=== PATIENT | male | born 1995 | race Caucasian/White ===

== ENCOUNTER 2016-06-01 12:33 | Emergency (ER) | payer OTHER ==
[~2016-06-01] VITALS: Wt 80.4 kg
[2016-06-01] MEDS ORDERED: ONDANSETRON 4 MG INJ IV STA (14:13)
[2016-06-01] MEDS ORDERED: morphine 4 MG/ML VIAL IV STA (14:13)
[2016-06-01] MEDS ORDERED: KETOROLAC 30 MG INJ IV STA (14:13)
--- NOTE | 2016-06-01 14:22 | ERD ---
ER Documentation Chief Complaint Date/Time DATE: 06/01/16 TIME: 14:15 Chief Complaint HEADACHE COUGH AND CONGESTION FOR PAST 8 DAYS. SWOLLEN GLANDS. HPI 20-year-old male with history of migraine headaches presents to the emergency department complaining of shortness of breath, congestion, ear pain, headache with photophobia, cough 4 days. Patient states he was just seen at [facility] 2 days ago for chest pain. He states a full workup including chest x- ray was performed and results were negative. Patient states she was seen at [facility] 1 year ago for similar headache symptoms. Patient denies any unilateral weakness, numbness, blurry vision, dizziness, fever, nausea, vomiting , diarrhea. Patient states she is concerned regarding the possibility of a left nasal polyp but denies ever seeing an ENT specialist. Patient has attempted to treat his symptoms with Motrin and cough medicine at home without relief. ROS All systems reviewed and are negative except as per history of present illness. Medications Home Meds Active Scripts Amoxicillin/Potassium Clav (Amox-Clav 875-125 mg Tablet) 875-125 mg Tab, 1 TAB PO BID for 7 Days, #14 TAB Prov:ONEIDA TAVAREZ PA-C 06/01/16 Acetamin/Butalbital/Caffeine* (Fioricet*) [id number] Tab, 1 TAB PO Q6H Y for PAIN, #30 TAB Prov:ONEIDA TAVAREZ PA-C 06/01/16 Guaifenesin/Pseudoephedrne HCl (Mucinex D ER 1,200-120 mg Tab) 1 Each Tab.er.12h , 1 EACH PO QAM for 5 Days, TAB Prov:ONEIDA TAVAREZ PA-C 06/01/16 Oseltamivir Phosphate* (Tamiflu*) 75 Mg Capsule, 75 MG PO BID for 5 Days, CAP Prov:ONEIDA TAVAREZ PA-C 06/01/16 Fluticasone Propionate (Flonase Allergy Relief) 9.9 Ml [place].susp, 1 SPRAY NASAL BID, #1 BOTTLE TO EACH NOSTRIL Prov:ONEIDA TAVAREZ PA-C 06/01/16 Discontinued Scripts Hydrocodone/Acetaminophen ([place] 10-325 Tablet) 1 Each Tablet, 1 TAB PO Q6H Y for PAIN, #7 TAB Prov:ONEIDA TAVAREZ PA-C 06/01/16 Allergies Allergies: Coded Allergies: No Known Allergy (Unverified , 06/01/16) PMhx/Soc History of Surgery: No Anesthesia Reaction: No Hx Neurological Disorder: Yes (ferequent headaches) Hx Respiratory Disorders: No Hx Cardiac Disorders: Yes (hypertension) Hx Psychiatric Problems: No Hx Alcohol Use: No Hx Substance Use: No Hx Tobacco Use: No Smoking Status: Never smoker Physical Exam Vitals Vital Signs Date Time Temp Pulse Resp B/P Pulse Ox O2 Delivery O2 Flow Rate FiO2 06/01/16 16:29 87 19 99 Nasal Cannula 4.0 06/01/16 16:29 4.0 06/01/16 15:34 95 20 97 21 06/01/16 12:40 98.0 98 20 160/90 99 Physical Exam General: Well developed, well nourished, nontoxic-appearing, mild distress Head: Normocephalic, atraumatic EENT: Pupils equally reactive, EOM intact, posterior pharynx moderately erythematous without exudates. Tonsillar swelling 1+ bilaterally. Bilateral anterior lymphadenopathy. Uvula midline, tympanic membranes without erythema or swelling bilaterally. Nares patent. No evidence of the left sided nasal polyp upon exam peer Neck: Supple, full range of motion no meningismus Respiratory: Lungs clear bilaterally, no wheezes, rhonchi, rales Cardiovascular: RRR, no murmurs, rubs, or gallops Abdominal: Soft, non-tender, non-distended, no peritoneal signs MSK: No edema, no unilateral weakness or swelling. Nurologic: Alert normal mood and affect. Skin: No rash Results 24 hrs Current Medications Medications (Trade) Dose Ordered Sig/Dieter Route PRN Reason Start Time Stop Time Status Last Admin Dose Admin Sodium Chloride (NS) 1,000 ml @ 1,000 mls/hr Q1H ONCE IV 06/01/16 14:30 06/01/16 15:29 DC 06/01/16 14:45 Ketorolac Tromethamine (Toradol) 30 mg ONCE STAT IV 06/01/16 14:13 06/01/16 14:15 DC 06/01/16 14:44 Morphine Sulfate (morphine) 4 mg ONCE STAT IV 06/01/16 14:13 06/01/16 14:15 DC 06/01/16 14:45 Ondansetron HCl (Zofran Inj) 4 mg ONCE STAT IV 06/01/16 14:13 06/01/16 14:15 DC 06/01/16 14:44 Albuterol (Proventil 0.5% (Neb)) 5 mg ONCE STAT NEB 06/01/16 15:00 06/01/16 15:01 DC 06/01/16 15:34 Acetaminophen 650 mg 650 mg ONCE ONCE PO 06/01/16 16:30 06/01/16 16:31 DC 06/01/16 16:20 Sodium Chloride (NS) 500 ml @ 500 mls/hr Q1H ONCE IV 06/01/16 16:30 06/01/16 16:59 DC 06/01/16 16:21 Procedures/MDM Case was discussed with Dr. Saul Patient migraine symptoms well controlled with IV bolus of fluids as well as IV Toradol, morphine and Tylenol Patient received albuterol nebulizer treatment and reports improvement of his dyspnea. Patient does not display any evidence of respiratory distress, wheezing, or respiratory compromise prior to discharge. I had a discussion with the patient regarding the risks and benefits associated with CT scan and further diagnostic testing for his headache. Patient stated he is recently received a head CT for similar symptoms within the past 6 months that was negative and notes that he would refuse another CAT scan if ordered today. Patient is alert, hyperactive, denies neck pain or stiffness. Patient has requested IV fluids and pain medication to control his symptoms. Patient has been seen multiple times at various emergency departments recently and workups have remained unremarkable for serious etiology. The patient's headache is unlikely related to serious etiology. The patient does not exhibit any clinical signs or symptoms, and has no risk factors to suggest headache etiology such as subarachnoid hemorrhage, acute vertebral or carotid dissection, intracranial mass, epidural, subdural hematoma, dural venous sinus thrombosis, giant cell arteritis, or pseudotumor cerebri. The patient's clinical presentation is very consistent with an acute viral syndrome, migraine headache and sinusitis. The patient does not exhibit any clinical signs or symptoms concerning for serious bacterial infection or systemic illness. Based on history and clinical exam findings the patient does not appear to have evidence of pneumonia, strep pharyngitis, urinary tract infection, bacteremia, sepsis, or meningitis. For these reasons I do not believe it is necessary to obtain laboratory testing or diagnostic imaging. I believe it would be appropriate for symptom control, and close outpatient primary care follow-up. Based on patient's history of present illness and physical examination the decision was made to discharge. The patient was re-evaluated after ED treatment and stabilizing measures, and symptoms have improved. There is no evidence of life threatening injuries or illnesses at this time. On re-examination, patient resting in no distress, stable vital signs, reports feeling better and safe for discharge with outpatient follow up with PMD in 1-2 days. Patient given return precautions. ONEIDA TAVAREZ PA-C Jun 01, 2016 14:22
[2016-06-01] MEDS ORDERED: SOD CHLORIDE 0.9% 1,000 ML IV ONE (14:30)
[2016-06-01] MEDS ORDERED: ALBUTEROL 0.5% (NEB) 2.5 MG/0.5 ML AMP NEB STA (15:00)
[2016-06-01] MEDS ORDERED: OSLT75C PO (15:51)
[2016-06-01] MEDS ORDERED: FLUT9.9S NASAL (15:51)
[2016-06-01] MEDS ORDERED: GUAI-106 PO (15:51)
[2016-06-01] MEDS ORDERED: HYDR-902 PO (16:16)
[2016-06-01] MEDS ORDERED: FIORICET PO (16:16)
[2016-06-01] MEDS ORDERED: AMOX1TAB10 PO (16:18)
[2016-06-01] MEDS ORDERED: SOD CHLORIDE 0.9% 500 ML IV ONE (16:30)
[2016-06-01] MEDS ORDERED: ACETAMINOPHEN 325 MG TAB PO ONE (16:30)
== END 2016-06-01 16:59 | disposition home or self-care (01) ==
LOC: FTE 12:33
DX: B34.9 Viral infection, unspecified (principal); G43.909 Migraine, unspecified, not intractable, without status migrainosus; J32.9 Chronic sinusitis, unspecified; I10 Essential (primary) hypertension
CPT/HCPCS: 94644; 94664; 96374; 96375; J1885; J2270; J2405; J7030; J7040; Z7502; Z7610

== ENCOUNTER 2016-06-23 18:33 | Emergency (ER) | payer OTHER ==
[~2016-06-23] VITALS: Ht 154.9 cm; Wt 86.5 kg
[~2016-06-23 18:33] MED LIST: AMOX1TAB10 PO; FIORICET PO; FLUT9.9S NASAL; GUAI-106 PO; OSLT75C PO
[2016-06-23 19:02] VITALS: Ht 154.9 cm; Wt 86.5 kg
--- NOTE | 2016-06-23 20:48 | RADRPT ---
PROCEDURE: XR Chest. CLINICAL INDICATION: 20-year-old male with cough and shortness of breath. TECHNIQUE: Single frontal view of the chest was obtained COMPARISON: None FINDINGS: The soft tissues are normal. The bony elements are normal. The cardiomediastinal silhouette, pulmo nary vasculature and hilar structures are normal. There is a left-sided aorta. The lungs are clear. The costophrenic angles are normal. IMPRESSION: 1. Normal chest x-ray. RPTAT:AAJJ Physician Tashi Date Time Electronically viewed and signed by Luis Alberto Ospina Physician on 06/23/2016 20:48 MARCIO/
[2016-06-23] MEDS ORDERED: CETI10CA PO (21:03)
--- NOTE | 2016-06-23 22:39 | ERD ---
ER Documentation Chief Complaint Date/Time DATE: 06/23/16 TIME: 22:33 Chief Complaint SOB with 100% O2 sat. Anxiety. VSS. HPI Patient is a 20-year-old male past medical history of hypertension, migraine headaches who presents to the emergency department with shortness of breath. Patient states that his symptoms started approximately 3 hours ago when he was driving by the hospital. Patient states that he felt as if he could not breathe. Patient also states that he was having midsternal chest pain at the time. Chest pain has now resolved. Patient denied any arm pain, jaw pain or diaphoresis. Patient states that he has been having ongoing "nasal stuffiness" which he has had numerous workups for including CT sinuses. Patient states due to his nasal stuffiness he is unable to breathe.Patient states he is also having itching throughout his body. Patient denies any nausea, vomiting, cough , abdominal pain, diarrhea or loss of consciousness. Patient denies any recent falls or trauma. Patient denies any recent surgeries, prolonged travel, unilateral leg swelling, history of DVTs or pulmonary embolisms. ROS All systems reviewed and are negative except as per history of present illness. Medications Home Meds Active Scripts Cetirizine Hcl* (Zyrtec*) 10 Mg Capsule, 10 MG PO DAILY, #30 TAB.CHEW Prov:HERBERT REYNOLDS PA-C 06/23/16 Amoxicillin/Potassium Clav (Amox-Clav 875-125 mg Tablet) 875-125 mg Tab, 1 TAB PO BID for 7 Days, #14 TAB Prov:ONEIDA TAVAREZ PA-C 06/01/16 Acetamin/Butalbital/Caffeine* (Fioricet*) [id number] Tab, 1 TAB PO Q6H Y for PAIN, #30 TAB Prov:ONEIDA TAVAREZ PA-C 06/01/16 Guaifenesin/Pseudoephedrne HCl (Mucinex D ER 1,200-120 mg Tab) 1 Each Tab.er.12h , 1 EACH PO QAM for 5 Days, TAB Prov:ONEIDA TAVAREZ PA-C 06/01/16 Oseltamivir Phosphate* (Tamiflu*) 75 Mg Capsule, 75 MG PO BID for 5 Days, CAP Prov:ONEIDA TAVAREZ PA-C 06/01/16 Fluticasone Propionate (Flonase Allergy Relief) 9.9 Ml [place].susp, 1 SPRAY NASAL BID, #1 BOTTLE TO EACH NOSTRIL Prov:ONEIDA TAVAREZ PA-C 06/01/16 Allergies Allergies: Coded Allergies: No Known Allergy (Unverified , 06/01/16) PMhx/Soc Medical and Surgical Hx: pt denies Surgical Hx History of Surgery: No Anesthesia Reaction: No Hx Neurological Disorder: Yes (ferequent headaches, TIA) Hx Respiratory Disorders: No Hx Cardiac Disorders: Yes (hypertension) Hx Psychiatric Problems: No Hx Miscellaneous Medical Probl: No Hx Alcohol Use: No Hx Substance Use: No Hx Tobacco Use: No Smoking Status: Never smoker FmHx Family History: No diabetes Physical Exam Vitals Vital Signs Date Time Temp Pulse Resp B/P Pulse Ox O2 Delivery O2 Flow Rate FiO2 06/23/16 19:02 98.0 102 24 130/92 100 Physical Exam GENERAL: Well-developed, well-nourished male. Appears in no acute distress. Speaking in full sentences HEAD: Normocephalic, atraumatic. No deformities or ecchymosis. EYE: Pupils equal, round, and reactive to light. EOMs intact. No conjunctival erythema. No eye discharge. ENT: External ear without any masses or tenderness. Auditory canals clear bilaterally. TM visualized bilaterally, non-erythematous, non-bulging. Nasal mucosa pink with no discharge. Oropharynx is pink without any tonsillar erythema or exudates. No uvula deviation. No kissing tonsils. No throat swelling. No tongue swelling. NECK: supple. Normal range of motion of the neck. Trachea appears midline. CHEST: Tender to palpation in the mid sternum. Pain is reproducible. LUNG: Clear to auscultation bilaterally. No rhonchi, wheezing, rales or coarse breath sounds. HEART: Regular rate and rhythm. No murmurs, rubs or gallops. BACK: No midline tenderness. EXTREMITIES: Equal pulses bilaterally. No peripheral clubbing, cyanosis or edema. No unilateral leg swelling. NEUROLOGIC: Alert and oriented to person, place and time. Moving all four extremities. 5/5 strength in all extremities. Normal speech. Steady gait. SKIN: Normal color. Warm and dry. No rashes or lesions. Procedures/MDM ED COURSE: The patient was stable throughout ED course. I kept the patient and/or family informed of laboratory and diagnostic imaging results throughout the ED course. EKG: Read by Dr. Gruber, attending physician. EKG shows normal sinus rhythm at a rate of 94 bpm No arrhythmias, acute ST elevations or T wave changes were noted. DIAGNOSTIC IMAGING: Read by radiologist. Patient: NAPOLEON DOS SANTOS : 1995 Age: 20 Sex: M MR #: [id number] DOS: 06/23/161956 Ordering MD: HEREBRT REYNOLDS PA-C Location: [facility] Room/Bed: PROCEDURE: XR Chest. CLINICAL INDICATION: 20-year-old male with cough and shortness of breath. TECHNIQUE: Single frontal view of the chest was obtained COMPARISON: None FINDINGS: The soft tissues are normal. The bony elements are normal. The cardiomediastinal silhouette, pulmonary vasculature and hilar structures are normal. There is a left-sided aorta. The lungs are clear. The costophrenic angles are normal. IMPRESSION: 1. Normal chest x-ray. RPTAT:AAJJ Physician Tashi Date Time Electronically viewed and signed by Physician Tashi on 06/23/2016 20:48 JM/ CC: HERBERT REYNOLDS PA-C MEDICAL DECISION MAKING: This is a 20-year-old male who presented with shortness of breath which started 3 hours ago. Vital signs were reviewed. Patient was afebrile. Patient was not hypoxic. Cardiac exam was normal. Lung exam was normal. Pain was reproduced with palpation. EKG was within normal limits. Low suspicion for acute coronary syndrome, arrhythmia or pericarditis. CXR was within normal limits. Low suspicion for pneumothorax, pneumonia or pleural effusion. Patient denied any history of DVT, PE, recent prolonged sitting or surgery. Low suspicion for DVT or PE. Low suspicion for asthma, bronchitis, pneumonia. Given these findings, the patient's presentation is most consistent with allergic rhinitis. PRESCRIPTIONS: Zyrtec DISCHARGE: At this time, patient is stable for discharge and outpatient management. I have instructed the patient to follow-up with his/her primary care physician in 1-2 days. If symptoms persist, patient may need to see a specialist for further examinations and testing. I have instructed the patient to promptly return to the ER at any time for any new or worsening symptoms including increased increased pain, fever, nausea, vomiting, numbness, weakness, diaphoresis or LOC. The patient and/or family expressed understanding of and agreement with this plan. All questions were answered. Home care instructions were provided. Departure Diagnosis: Primary Impression: Allergic rhinitis Allergic rhinitis seasonality: unspecified seasonality Allergic rhinitis trigger: unspecified Qualified Code: J30.9 - Allergic rhinitis, unspecified allergic rhinitis trigger, unspecified rhinitis seasonality Additional Impression: SOB (shortness of breath) Condition: Stable Patient Instructions: Coping with Shortness of Breath: Controlling Stress Referrals: [facility] YOU HAVE RECEIVED A MEDICAL SCREENING EXAM AND THE RESULTS INDICATE THAT YOU DO NOT HAVE A CONDITION THAT REQUIRES URGENT TREATMENT IN THE EMERGENCY DEPARTMENT. FURTHER EVALUATION AND TREATMENT OF YOUR CONDITION CAN WAIT UNTIL YOU ARE SEEN IN YOUR DOCTORS OFFICE WITHIN THE NEXT 1-2 DAYS. IT IS YOUR RESPONSIBILITY TO MAKE AN APPOINTMENT FOR FOLOW-UP CARE. IF YOU HAVE A PRIMARY DOCTOR --you should call your primary doctor and schedule an appointment IF YOU DO NOT HAVE A PRIMARY DOCTOR YOU CAN CALL OUR PHYSICIAN REFERRAL HOTLINE AT IF YOU CAN NOT AFFORD TO SEE A PHYSICIAN YOU CAN CHOSE FROM THE FOLLOWING [facility] [address] [facility]. [facility] [address] [facility] [address] [facility] [facility] [address] [facility]. [facility] [address] [facility]. [facility]. [address] [facility] YOU HAVE RECEIVED A MEDICAL SCREENING EXAM AND THE RESULTS INDICATE THAT YOU DO NOT HAVE A CONDITION THAT REQUIRES URGENT TREATMENT IN THE EMERGENCY DEPARTMENT. FURTHER EVALUATION AND TREATMENT OF YOUR CONDITION CAN WAIT UNTIL YOU ARE SEEN IN YOUR DOCTORS OFFICE WITHIN THE NEXT 1-2 DAYS. IT IS YOUR RESPONSIBILITY TO MAKE AN APPOINTMENT FOR FOLOW-UP CARE. IF YOU HAVE A PRIMARY DOCTOR --you should call your primary doctor and schedule and appointment IF YOU DO NOT HAVE A PRIMARY DOCTOR YOU CAN CALL OUR PHYSICIAN REFERRAL HOTLINE AT . IF YOU CAN NOT AFFORD TO SEE A PHYSICIAN YOU CAN CHOSE FROM THE FOLLOWING [facility] INSTITUTIONS: [facility] [address] [place] [address] [facility] [address] [place] [address] [facility] [address] [place] [address] Additional Instructions: Call your primary care doctor TOMORROW for an appointment during the next 1-2 days.See the doctor sooner or return here if your condition worsens before your appointment time. HERBERT REYNOLDS PA-C Jun 23, 2016 22:39
== END 2016-06-23 21:29 | disposition home or self-care (01) ==
LOC: FTE 18:33
DX: J30.9 Allergic rhinitis, unspecified (principal); I10 Essential (primary) hypertension
CPT/HCPCS: 71010; Z7502; 93005

== ENCOUNTER 2016-12-10 01:44 | Emergency (ER) | payer SELFPAY ==
[~2016-12-10] VITALS: Ht 165.1 cm; Wt 81.4 kg
[~2016-12-10 01:44] MED LIST changes: +CETI10CA PO
[2016-12-10 01:47] VITALS: Ht 165.1 cm; Wt 81.4 kg
== END 2016-12-10 03:08 | disposition left against medical advice (07) ==
LOC: FTE 01:44
DX: Z53.21 Procedure and treatment not carried out due to patient leaving prior to being seen by health care provider (principal)